=== PATIENT | female | born 1975 | race Caucasian/White ===

== ENCOUNTER 2016-11-03 14:38 | Emergency (ER) | payer OTHER ==
[~2016-11-03] VITALS: Ht 175.3 cm; Wt 136.4 kg
[~2016-11-03 14:38] MED LIST: PROTONIX40 MG PO
[2016-11-03 16:17] LABS: HEMATOCRIT 35.4 % (37.0-47.0); HEMOGLOBIN 11.5 g/dl (12.0-16.0); IMMATURE GRANULOCYTES 0.6 % (0.0-1.0); MEAN CELL VOLUME 90.3 fL CALC (80.0-100.0); MEAN CORPUSCULAR HGB 29.3 pG CALC (26.0-32.0); MEAN CORPUSCULAR HGB CONC 32.5 g/L CALC (32.0-36.0); NEUT# 5.38 thou/uL (2.00-7.15); RED BLOOD COUNT 3.92 mill/uL (4.20-5.60); RED CELL DISTRI WIDTH 13.8 % (11.5-15.5)
[2016-11-03 16:24] LABS: ALBUMIN 4.2 g/dL (3.2-5.0); ALKALINE PHOSPHATASE 64 u/l (38-126); ANION GAP 15 (6-22 (CALC)); BILIRUBIN, TOTAL 0.4 mg/dL (0.0-1.4); BUN 14 mg/dL (7-17); BUN/CREATININE RATIO 17 (12-20 (CALC)); CARBON DIOXIDE 26 mmol/l (22-30); CHLORIDE 103 mmol/l (95-108); CREATININE 0.8 mg/dL (0.5-1.0); GFR > 60 ML/MIN (>=60 (CALC)); GFR FOR AFR.AMER. > 60 ML/MIN (>=60 (CALC)); GLUCOSE 76 mg/dL (65-105); POTASSIUM 4.3 mmol/l (3.5-5.1); SGOT/AST 29 u/l (14-36); SGPT/ALT 48 u/l (9-52); SODIUM 140 mmol/l (137-146); TOTAL PROTEIN 7.2 g/dL (6.3-8.2)
[2016-11-03 16:35] LABS: MYOGLOBIN 65 ng/mL (0 - 62)
[2016-11-03] MEDS ORDERED: IBUPROFEN600 MG PO (17:06)
[2016-11-03 17:23] VITALS: BP 140/90
== END 2016-11-03 17:32 | disposition home or self-care (01) | DRG 103 ==
LOC: ED 14:38
PROVIDERS: Emergency Medicine
DX: R51 Headache (principal)

== ENCOUNTER 2017-06-14 16:30 | Emergency (ER) | payer BC ==
[~2017-06-14] VITALS: Ht 175.3 cm; Wt 100.0 kg
[~2017-06-14 16:30] MED LIST changes: +IBUPROFEN600 MG PO
[2017-06-14 17:49] LABS: INFLUENZA A NONE DETECTED (NONE DETECT); INFLUENZA B NONE DETECTED (NONE DETECT)
[2017-06-14 18:29] VITALS: BP 154/97
== END 2017-06-14 18:32 | disposition home or self-care (01) | DRG 153 ==
LOC: ED 16:30
PROVIDERS: Family Medicine
DX: J06.9 Acute upper respiratory infection, unspecified (principal); R05 Cough; R51 Headache; R11.2 Nausea with vomiting, unspecified; R09.89 Other specified symptoms and signs involving the circulatory and respiratory systems

== ENCOUNTER 2021-09-30 10:58 | Emergency (ER) | payer OTHER ==
[~2021-09-30] VITALS: Ht 175.3 cm; Wt 138.0 kg
[2021-09-30 12:31] LABS: GFR 59 ML/MIN (>=60 (CALC)); GFR FOR AFR.AMER. > 60 ML/MIN (>=60 (CALC))
[2021-09-30 12:39] LABS: HEMATOCRIT 36.4 % (37.0-47.0); HEMOGLOBIN 12.1 g/dl (12.0-16.0); IMMATURE GRANULOCYTES 0.3 % (0.0-5.0); MEAN CELL VOLUME 89.7 fL CALC (80.0-100.0); MEAN CORPUSCULAR HGB 29.8 pG CALC (26.0-32.0); MEAN CORPUSCULAR HGB CONC 33.2 g/dL CAL (32.0-36.0); NEUT# 4.96 thou/uL (2.00-7.15); RED BLOOD COUNT 4.06 mill/uL (4.20-5.60); RED CELL DISTRI WIDTH 15.1 % (11.5-15.5)
[2021-09-30 12:40] LABS: ALBUMIN 4.2 g/dL (3.2-5.0); ALKALINE PHOSPHATASE 66 u/l (38-126); BILIRUBIN, TOTAL 0.3 mg/dL (0.0-1.4); BUN 18 mg/dL (7-17); BUN/CREATININE RATIO 18 (12-20 (CALC)); CARBON DIOXIDE 30 mmol/l (22-30); CHLORIDE 101 mmol/l (95-108); GFR 59 ML/MIN (>=60 (CALC)); GFR FOR AFR.AMER. > 60 ML/MIN (>=60 (CALC)); SGOT/AST 41 u/l (14-36); SODIUM 140 mmol/l (137-146); TOTAL PROTEIN 7.7 g/dL (6.3-8.2)
[2021-09-30 12:41] LABS: ANION GAP 12 (6-22 (CALC)); POTASSIUM 3.3 mmol/l (3.5-5.1)
[2021-09-30 15:21] VITALS: BP 157/95
== END 2021-09-30 15:30 | disposition home or self-care (01) | DRG 90 ==
LOC: ED 10:58
PROVIDERS: Family Medicine
DX: S06.0X0A Concussion without loss of consciousness, initial encounter (principal); R07.89 Other chest pain; R51.9 Headache, unspecified; V43.52XA Car driver injured in collision with other type car in traffic accident, initial encounter; Y92.410 Unspecified street and highway as the place of occurrence of the external cause
CPT/HCPCS: Q9967

== ENCOUNTER 2023-05-26 10:05 | Emergency (ER) | payer BC ==
[2023-05-26] VITALS (9 sets, daily range): BP systolic 109–142; BP diastolic 66–84
[~2023-05-26] VITALS: Ht 170.2 cm; Wt 144.0 kg
[~2023-05-26 10:05] MED LIST changes: +B121000 MC1 PO; +BAYER CHEWABLE81 MG PO; +D3 50005000 UNIT PO; +FOLIC ACID1 M1 PO; +HYDROCHLOROT25 MG PO; +LOSARTAN POTASS50 MG PO; +METFORMIN HCL500 M2 PO; +OMEGA 3 PO; +OMEPRAZOLE DR40 MG PO; +PRAVASTATIN SOD20 MG PO
[2023-05-26 12:15] LABS: BASO% 0.3 % (0-3); HEMATOCRIT 41.6 % (37.0-47.0); HEMOGLOBIN 13.3 g/dl (12.0-16.0); IMMATURE GRANULOCYTES 0.3 % (0.0-5.0); LYMPH% 11.7 % (15-41); MEAN CELL VOLUME 90.2 fL CALC (80.0-100.0); MEAN CORPUSCULAR HGB 28.9 pG CALC (26.0-32.0); NEUT# 4.67 thou/uL (2.00-7.15); NEUT% 76.7 % (42-76); RED BLOOD COUNT 4.61 mill/uL (4.20-5.60); RED CELL DISTRI WIDTH 15.3 % (11.5-15.5)
[2023-05-26 12:22] LABS: ALBUMIN 4.4 g/dL (3.2-5.0); ALKALINE PHOSPHATASE 81 u/l (38-126); BUN 15 mg/dL (7-17); BUN/CREATININE RATIO 14 (12-20 (CALC)); CARBON DIOXIDE 26 mmol/l (22-30); CHLORIDE 103 mmol/l (95-108); GFR FOR AFR.AMER. > 60 ML/MIN (>=60 (CALC)); GFR OTHER RACES 59 ML/MIN (>=60 (CALC)); SGOT/AST 35 u/l (14-36); SODIUM 136 mmol/l (137-146)
[2023-05-26 12:31] LABS: ANION GAP 11 (6-22 (CALC)); BILIRUBIN, TOTAL 0.5 mg/dL (0.02-1.3); POTASSIUM 4.3 mmol/l (3.5-5.1)
[2023-05-26] MEDS ORDERED: MOTRIN800 MG PO (13:37)
[2023-05-26] MEDS ORDERED: TAM75CAP PO (13:37)
== END 2023-05-26 14:07 | disposition home or self-care (01) | DRG 195 ==
LOC: ED 10:05
PROVIDERS: Emergency Medicine
DX: J10.1 Influenza due to other identified influenza virus with other respiratory manifestations (principal); I10 Essential (primary) hypertension; E11.9 Type 2 diabetes mellitus without complications; K21.9 Gastro-esophageal reflux disease without esophagitis; Z79.84 Long term (current) use of oral hypoglycemic drugs; Z20.822 Contact with and (suspected) exposure to COVID-19